=== PATIENT | male | born 1965 | race Caucasian/White ===

== ENCOUNTER 2022-03-03 18:29 | Emergency (ER) | payer OTHER ==
[~2022-03-03] VITALS: Ht 175.3 cm; Wt 190.0 kg
[2022-03-03 18:42] VITALS: BP 124/86
[2022-03-03] MEDS ORDERED: proparacaine 0.5% ophthalmic drops 15ml EACHEYE ONE (19:00)
--- NOTE | 2022-03-03 19:06 | NUR ---
2 drops applied to lt eye
[2022-03-03] MEDS ORDERED: TETanus/Pertussis (Acell)/Diphther VAC/PF (Tdap-Adult) 0.5ml syringe IMVAC ONE (19:20)
[2022-03-03] MEDS ORDERED: POLOS EACHEYE (19:21)
== END 2022-03-03 19:37 | disposition home or self-care (01) ==
LOC: ER 18:31
DX: S05.02XA Injury of conjunctiva and corneal abrasion without foreign body, left eye, initial encounter (principal); W54.0XXA Bitten by dog, initial encounter; Y93.89 Activity, other specified; Y92.89 Other specified places as the place of occurrence of the external cause; Y99.8 Other external cause status
CPT/HCPCS: 90471; 90715; 99283